=== PATIENT | male | born 1950 | race Two or more races ===

== ENCOUNTER → 2018-08-18 | Outpatient (CLI) | payer OTHER ==
[~2018-08-18] MED LIST: ASPI325T4 PO; IBUP600T27 PO
== END | disposition home or self-care (01) ==
LOC: CT 09:15
DX: J43.2 Centrilobular emphysema (principal); J98.11 Atelectasis; R16.1 Splenomegaly, not elsewhere classified; I70.0 Atherosclerosis of aorta
CPT/HCPCS: 71250

== ENCOUNTER 2019-12-28 18:27 | Emergency (ER) | payer OTHER | END 2019-12-28 19:06 | disposition left against medical advice (07) | LOC: EEVIPCON 18:27 → ER 18:27 → EDBD 18:27 → ER 19:06 | DX: R05 Cough (principal); Z53.21 Procedure and treatment not carried out due to patient leaving prior to being seen by health care provider ==

== ENCOUNTER 2020-08-14 19:59 | Inpatient (IN) | payer OTHER ==
[~2020-08-14] VITALS: Ht 170.2 cm; Wt 98.3 kg
[2020-08-15 22:00] VITALS: BP 119/73
[2020-08-15] MEDS: D5W/SOD CHL 0.45% 1,000 ML IV SCH (22:30)
[2020-08-15] MEDS ORDERED: TPN PER PHARMACY 0 ML IV SCH (22:30)
[2020-08-15] MEDS ORDERED: MORPHINE SULFATE 4 MG/ML SYR/VIAL IV PRN (22:30)
[2020-08-15] MEDS: ONDANSETRON HCL 4 MG/2 ML VIAL IV PRN (23:30)
[2020-08-15] MEDS: PIPERACILLIN-TAZOB 3.375GM 100 ML IV SCH (23:30)
[2020-08-15] MEDS: metroNIDAZOLE 500MG/100ML 100 ML IV SCH (23:30)
[2020-08-16 05:00] VITALS: BP 127/72
[2020-08-16] MEDS: D5W/SOD CHL 0.45% 1,000 ML IV SCH ×3 (05:10→18:21)
[2020-08-16] MEDS: metroNIDAZOLE 500MG/100ML 100 ML IV SCH ×3 (06:46→22:02)
[2020-08-16] MEDS: PIPERACILLIN-TAZOB 3.375GM 100 ML IV SCH ×3 (06:46→22:02)
[2020-08-16] MEDS: ONDANSETRON HCL 4 MG/2 ML VIAL IV PRN ×2 (06:46→19:05)
[2020-08-16 09:00] VITALS: BP 118/71
[2020-08-16] MEDS ORDERED: ENOXAPARIN SOD 40 MG/0.4 ML SYRINGE SC SCH (10:00)
[2020-08-16] MEDS ORDERED: TPN PER PHARMACY 0 ML IV SCH (10:30)
[2020-08-16 10:39] LABS: Albumin 2.6 g/dL (3.4-5.0); Calcium 8.3 mg/dL (8.5-10.1); Magnesium 2.3 mg/dL (1.6-2.6); Potassium 3.6 mmol/L (3.5-5.1)
[2020-08-16 10:46] LABS: Bilirubin, Total 1.1 mg/dL (0.2-1.0); Phosphorus 2.7 mg/dL (2.5-4.90); Pre Albumin 13.9 mg/dL (20.0-40.0); Total Protein 6.4 g/dL (6.4-8.2)
[2020-08-16 12:35] LABS: Basophils # (auto) 0.2 10 ^3/uL (0-0.2); Basophils % (auto) 0.8 % (0.0-2.0); Eosinophils # (auto) 0.2 10 ^3/uL (0-0.8); Eosinophils % (auto) 0.8 % (0.0-7.0); Hematocrit 51.5 % (41.0-53.0); Lymphocytes # (auto) 0.6 10 ^3/uL (0.4-5.4); Lymphocytes % (auto) 2.8 % (10.0-50.0); Mean Corpuscular Hemoglobin 30.6 pg (28.0-32.0); Mean Corpuscular Volume 92.7 fL (80.0-100.0); Monocytes # (auto) 1.5 10 ^3/uL (0-1.3); Monocytes % (auto) 7.1 % (0.0-12.0); Neutrophils % (auto) 88.5 % (37.0-80.0); Nucleated Red Blood Cells % 0.1 %; Platelet Count (auto) 413 10^3/uL (140-450); Red Blood Cells 5.55 10^6/uL (4.5-5.90); Red Cell Distribution Width 15.5 % (11.8-14.3); White Blood Cell 21.5 10^3/uL (4.4-10.8)
[2020-08-16 14:49] VITALS: BP 114/63
[2020-08-16 17:00] VITALS: BP 118/71
[2020-08-16] MEDS ORDERED: TPN PER PHARMACY IV NR ×6 (20:00)
[2020-08-16 22:00] VITALS: BP 116/70
[2020-08-17] MEDS ORDERED: DEXTROSE (50%) 50ML SYRG IV SCH
[2020-08-17] MEDS: InsuLIN REG 1unit/0.01ml Soln (100units/ml) SC SCH ×5 (00:38→23:30)
[2020-08-17] MEDS: ACCU-CHEK COMFORT CURVE STRIP VI SCH ×5 (00:38→23:30)
[2020-08-17] MEDS: D5W/SOD CHL 0.45% 1,000 ML IV SCH (01:17)
[2020-08-17 05:00] VITALS: BP 115/74
[2020-08-17 05:30] LABS: Potassium 3.5 mmol/L (3.5-5.1)
[2020-08-17 05:39] LABS: Albumin 2.6 g/dL (3.4-5.0); BUN/Creatinine Ratio 19.8; Calcium 8.1 mg/dL (8.5-10.1); Magnesium 2.5 mg/dL (1.6-2.6)
[2020-08-17 05:42] LABS: Bilirubin, Total 1.2 mg/dL (0.2-1.0); Phosphorus 2.9 mg/dL (2.5-4.90); Total Protein 6.5 g/dL (6.4-8.2)
[2020-08-17] MEDS: PIPERACILLIN-TAZOB 3.375GM 100 ML IV SCH ×3 (06:25→22:12)
[2020-08-17] MEDS: metroNIDAZOLE 500MG/100ML 100 ML IV SCH ×3 (06:25→22:12)
[2020-08-17 09:00] VITALS: BP 113/70
[2020-08-17] MEDS: PANTOPRAZOLE 40 MG/10 ML VIAL INJ IV SCH (09:49)
[2020-08-17] MEDS ORDERED: D5W/SOD CHL 0.45% 1,000 ML IV SCH ×2 (10:30→20:00)
[2020-08-17 13:00] VITALS: BP 116/76
[2020-08-17 13:53] LABS: INR 1.26 (0.9-1.15); Partial Thromboplastin Time 29.4 sec (23.0-31.2)
[2020-08-17] MEDS ORDERED: GASTROGRAFIN 120 ML SOL ONE (14:57)
[2020-08-17] MEDS ORDERED: TPN PER PHARMACY IV NR ×9 (20:00)
[2020-08-17 22:00] VITALS: BP 115/70
[2020-08-18 05:00] VITALS: BP 119/75
[2020-08-18] MEDS: metroNIDAZOLE 500MG/100ML 100 ML IV SCH ×3 (06:16→21:50)
[2020-08-18] MEDS: PIPERACILLIN-TAZOB 3.375GM 100 ML IV SCH ×3 (06:16→21:50)
[2020-08-18] MEDS: ACCU-CHEK COMFORT CURVE STRIP VI SCH ×4 (06:32→23:51)
[2020-08-18] MEDS: InsuLIN REG 1unit/0.01ml Soln (100units/ml) SC SCH ×4 (06:32→23:50)
[2020-08-18 07:17] LABS: Basophils # (auto) 0.2 10 ^3/uL (0-0.2); Basophils % (auto) 0.9 % (0.0-2.0); Eosinophils # (auto) 0.3 10 ^3/uL (0-0.8); Red Blood Cells 5.84 10^6/uL (4.5-5.90); Red Cell Distribution Width 15.4 % (11.8-14.3)
[2020-08-18 07:19] LABS: Eosinophils % (auto) 1.6 % (0.0-7.0); Hematocrit 53.9 % (41.0-53.0); Lymphocytes # (auto) 0.9 10 ^3/uL (0.4-5.4); Lymphocytes % (auto) 5.1 % (10.0-50.0); Mean Corpuscular Hemoglobin 30.8 pg (28.0-32.0); Mean Corpuscular Hgb Conc. 33.3 g/dL (32.0-36.0); Mean Corpuscular Volume 92.3 fL (80.0-100.0); Monocytes # (auto) 1.4 10 ^3/uL (0-1.3); Monocytes % (auto) 8.1 % (0.0-12.0); Neutrophils # (auto) 14.2 10 ^3/uL (1.6-8.6); Neutrophils % (auto) 84.3 % (37.0-80.0); Nucleated Red Blood Cells % 0.3 %; Platelet Count (auto) 452 10^3/uL (140-450); White Blood Cell 16.8 10^3/uL (4.4-10.8)
[2020-08-18 07:34] LABS: Albumin 2.7 g/dL (3.4-5.0); Calcium 8.4 mg/dL (8.5-10.1); Magnesium 2.8 mg/dL (1.6-2.6); Potassium 3.6 mmol/L (3.5-5.1)
[2020-08-18 07:38] LABS: BUN/Creatinine Ratio 20.2; Bilirubin, Total 1.1 mg/dL (0.2-1.0); Phosphorus 3.4 mg/dL (2.5-4.90); Total Protein 7.2 g/dL (6.4-8.2)
[2020-08-18 07:50] VITALS: BP 120/74
[2020-08-18] MEDS: PANTOPRAZOLE 40 MG/10 ML VIAL INJ IV SCH (09:49)
[2020-08-18 13:00] VITALS: BP 111/70
[2020-08-18 16:57] VITALS: BP 117/83
[2020-08-18 20:00] VITALS: BP 116/68
[2020-08-18] MEDS ORDERED: TPN PER PHARMACY IV NR ×8 (20:00)
[2020-08-18 22:00] VITALS: BP 116/68
[2020-08-19 05:00] VITALS: BP 98/64
[2020-08-19] MEDS: PIPERACILLIN-TAZOB 3.375GM 100 ML IV SCH ×3 (05:45→22:00)
[2020-08-19] MEDS: metroNIDAZOLE 500MG/100ML 100 ML IV SCH ×3 (05:45→22:00)
[2020-08-19] MEDS: InsuLIN REG 1unit/0.01ml Soln (100units/ml) SC SCH ×3 (05:52→18:05)
[2020-08-19] MEDS: ACCU-CHEK COMFORT CURVE STRIP VI SCH ×3 (05:52→17:20)
[2020-08-19 07:41] LABS: Albumin 2.5 g/dL (3.4-5.0); Magnesium 2.6 mg/dL (1.6-2.6); Potassium 3.4 mmol/L (3.5-5.1)
[2020-08-19 07:46] LABS: BUN/Creatinine Ratio 21.3; Bilirubin, Total 1.2 mg/dL (0.2-1.0); Phosphorus 3.1 mg/dL (2.5-4.90); Total Protein 6.3 g/dL (6.4-8.2)
[2020-08-19 08:20] VITALS: BP 127/80
[2020-08-19 09:15] VITALS: BP 127/80
[2020-08-19] MEDS: PANTOPRAZOLE 40 MG/10 ML VIAL INJ IV SCH (09:30)
[2020-08-19 12:58] VITALS: BP 127/70
[2020-08-19 16:40] VITALS: BP 131/73
[2020-08-19] MEDS ORDERED: TPN PER PHARMACY IV NR ×9 (20:00)
[2020-08-19 22:00] VITALS: BP 121/64
[2020-08-20] VITALS (7 sets, daily range): BP systolic 106–124; BP diastolic 67–71
[2020-08-20] MEDS: metroNIDAZOLE 500MG/100ML 100 ML IV SCH ×3 (06:00→21:36)
[2020-08-20] MEDS: PIPERACILLIN-TAZOB 3.375GM 100 ML IV SCH ×3 (06:00→21:36)
[2020-08-20] MEDS: PANTOPRAZOLE 40 MG/10 ML VIAL INJ IV SCH (10:08)
[2020-08-20] MEDS: ENOXAPARIN SOD 40 MG/0.4 ML SYRINGE SC SCH (10:08)
[2020-08-20] MEDS ORDERED: HYDROcodone-ACET 10/325MG TAB PO PRN (17:30)
[2020-08-21 05:00] VITALS: BP 137/81
[2020-08-21] MEDS: metroNIDAZOLE 500MG/100ML 100 ML IV SCH ×3 (05:19→22:14)
[2020-08-21] MEDS: PIPERACILLIN-TAZOB 3.375GM 100 ML IV SCH ×3 (05:20→22:14)
[2020-08-21 07:59] VITALS: BP 117/73
[2020-08-21] MEDS: PANTOPRAZOLE 40 MG/10 ML VIAL INJ IV SCH (09:39)
[2020-08-21] MEDS: ENOXAPARIN SOD 40 MG/0.4 ML SYRINGE SC SCH (09:40)
[2020-08-21 12:30] VITALS: BP 121/70
[2020-08-21 16:45] VITALS: BP 128/78
[2020-08-21 22:00] VITALS: BP 126/75
[2020-08-22 05:00] VITALS: BP 130/72
[2020-08-22] MEDS: metroNIDAZOLE 500MG/100ML 100 ML IV SCH ×3 (05:24→22:24)
[2020-08-22] MEDS: PIPERACILLIN-TAZOB 3.375GM 100 ML IV SCH ×3 (05:25→22:25)
[2020-08-22 08:30] VITALS: BP 116/70
[2020-08-22] MEDS: PANTOPRAZOLE 40 MG/10 ML VIAL INJ IV SCH (09:14)
[2020-08-22] MEDS: ENOXAPARIN SOD 40 MG/0.4 ML SYRINGE SC SCH (09:14)
[2020-08-22 12:30] VITALS: BP 113/70
[2020-08-22 16:54] VITALS: BP 137/72
[2020-08-22 22:00] VITALS: BP 113/67
[2020-08-23 05:00] VITALS: BP 121/72
[2020-08-23] MEDS: PIPERACILLIN-TAZOB 3.375GM 100 ML IV SCH ×3 (06:16→21:52)
[2020-08-23] MEDS: metroNIDAZOLE 500MG/100ML 100 ML IV SCH ×3 (06:17→21:54)
[2020-08-23 09:00] VITALS: BP 118/68
[2020-08-23] MEDS: ENOXAPARIN SOD 40 MG/0.4 ML SYRINGE SC SCH (09:23)
[2020-08-23] MEDS: PANTOPRAZOLE 40 MG/10 ML VIAL INJ IV SCH (09:23)
[2020-08-23 13:00] VITALS: BP 127/76
[2020-08-23 17:00] VITALS: BP 128/75
[2020-08-23 22:00] VITALS: BP 114/77
[2020-08-24 05:00] VITALS: BP 132/73
[2020-08-24] MEDS: PIPERACILLIN-TAZOB 3.375GM 100 ML IV SCH ×3 (06:10→22:25)
[2020-08-24] MEDS: metroNIDAZOLE 500MG/100ML 100 ML IV SCH ×3 (06:10→22:25)
[2020-08-24 08:00] VITALS: BP 126/74
[2020-08-24 08:22] VITALS: BP 126/74
[2020-08-24] MEDS: ENOXAPARIN SOD 40 MG/0.4 ML SYRINGE SC SCH (09:05)
[2020-08-24] MEDS: PANTOPRAZOLE 40 MG/10 ML VIAL INJ IV SCH (09:05)
[2020-08-24 13:00] VITALS: BP 122/68
[2020-08-24 16:08] VITALS: BP 115/64
[2020-08-24 22:47] VITALS: BP 128/78
[2020-08-25 05:35] VITALS: BP 131/76
[2020-08-25] MEDS: PIPERACILLIN-TAZOB 3.375GM 100 ML IV SCH ×3 (06:00→22:52)
[2020-08-25] MEDS: metroNIDAZOLE 500MG/100ML 100 ML IV SCH ×3 (06:00→22:52)
[2020-08-25 09:00] VITALS: BP 129/71
[2020-08-25] MEDS: PANTOPRAZOLE 40 MG/10 ML VIAL INJ IV SCH (10:01)
[2020-08-25] MEDS: ENOXAPARIN SOD 40 MG/0.4 ML SYRINGE SC SCH (10:02)
[2020-08-25 12:49] VITALS: BP 131/71
[2020-08-25 16:49] VITALS: BP 113/71
[2020-08-25 20:00] VITALS: BP 119/67
[2020-08-25 22:00] VITALS: BP 119/67
[2020-08-26 05:00] VITALS: BP 113/68
[2020-08-26] MEDS: PIPERACILLIN-TAZOB 3.375GM 100 ML IV SCH ×3 (05:23→21:21)
[2020-08-26] MEDS: metroNIDAZOLE 500MG/100ML 100 ML IV SCH ×3 (05:23→21:20)
[2020-08-26 08:49] VITALS: BP 112/59
[2020-08-26] MEDS: PANTOPRAZOLE 40 MG/10 ML VIAL INJ IV SCH (11:35)
[2020-08-26] MEDS: ENOXAPARIN SOD 40 MG/0.4 ML SYRINGE SC SCH (11:35)
[2020-08-26 12:38] VITALS: BP 101/68
[2020-08-26 16:42] VITALS: BP 115/69
[2020-08-26 20:00] VITALS: BP 114/71
[2020-08-26 22:00] VITALS: BP 114/71
[2020-08-27 05:00] VITALS: BP 134/75
[2020-08-27] MEDS: metroNIDAZOLE 500MG/100ML 100 ML IV SCH ×3 (05:29→21:23)
[2020-08-27] MEDS: PIPERACILLIN-TAZOB 3.375GM 100 ML IV SCH ×3 (05:30→21:23)
[2020-08-27] MEDS: ENOXAPARIN SOD 40 MG/0.4 ML SYRINGE SC SCH (09:58)
[2020-08-27] MEDS: PANTOPRAZOLE 40 MG/10 ML VIAL INJ IV SCH (09:58)
[2020-08-27 13:00] VITALS: BP 109/69
[2020-08-27 17:00] VITALS: BP 129/71
[2020-08-27 20:18] LABS: Basophils # (auto) 0.2 10 ^3/uL (0-0.2); Basophils % (auto) 1.3 % (0.0-2.0); Eosinophils # (auto) 0.3 10 ^3/uL (0-0.8); Eosinophils % (auto) 1.8 % (0.0-7.0); Hematocrit 50.8 % (41.0-53.0); Hemoglobin 16.7 g/dL (13.5-17.5); Lymphocytes # (auto) 1.1 10 ^3/uL (0.4-5.4); Lymphocytes % (auto) 7.7 % (10.0-50.0); Mean Corpuscular Hemoglobin 30.7 pg (28.0-32.0); Mean Corpuscular Hgb Conc. 32.9 g/dL (32.0-36.0); Mean Corpuscular Volume 93.3 fL (80.0-100.0); Monocytes % (auto) 6.8 % (0.0-12.0); Neutrophils # (auto) 11.6 10 ^3/uL (1.6-8.6); Neutrophils % (auto) 82.4 % (37.0-80.0); Nucleated Red Blood Cells % 0.2 %; Platelet Count (auto) 503 10^3/uL (140-450); Red Blood Cells 5.45 10^6/uL (4.5-5.90); Red Cell Distribution Width 16.4 % (11.8-14.3); White Blood Cell 14.1 10^3/uL (4.4-10.8)
[2020-08-27 20:35] LABS: Calcium 7.9 mg/dL (8.5-10.1); Potassium 4.7 mmol/L (3.5-5.1)
[2020-08-27 20:36] LABS: INR 1.12 (0.9-1.15); Partial Thromboplastin Time 30.2 sec (23.0-31.2)
[2020-08-27 20:38] LABS: BUN/Creatinine Ratio 12.4
[2020-08-27 20:56] LABS: Urine Bacteria NONE SEEN /hpf (None Seen); Urine Blood Negative /uL (Negative); Urine Specific Gravity 1.006 (1.001-1.035); Urine WBC 1 /hpf (0 - 3)
[2020-08-27 22:00] VITALS: BP 117/70
[2020-08-28] MEDS: metroNIDAZOLE 500MG/100ML 100 ML IV SCH ×3 (05:24→21:08)
[2020-08-28] MEDS: PIPERACILLIN-TAZOB 3.375GM 100 ML IV SCH ×3 (05:25→21:50)
[2020-08-28 09:00] VITALS: BP 142/82
[2020-08-28] MEDS: ENOXAPARIN SOD 40 MG/0.4 ML SYRINGE SC SCH (10:00)
[2020-08-28] MEDS: PANTOPRAZOLE 40 MG/10 ML VIAL INJ IV SCH (10:11)
[2020-08-28 13:00] VITALS: BP 107/68
[2020-08-28 16:45] VITALS: BP 127/73
[2020-08-28 21:35] VITALS: BP 101/68
[2020-08-29 05:52] VITALS: BP 126/70
[2020-08-29] MEDS: metroNIDAZOLE 500MG/100ML 100 ML IV SCH ×3 (06:28→21:45)
[2020-08-29] MEDS: PIPERACILLIN-TAZOB 3.375GM 100 ML IV SCH ×3 (06:29→21:45)
[2020-08-29 09:11] VITALS: BP 112/69
[2020-08-29] MEDS: ENOXAPARIN SOD 40 MG/0.4 ML SYRINGE SC SCH (09:21)
[2020-08-29] MEDS: PANTOPRAZOLE 40 MG/10 ML VIAL INJ IV SCH (09:21)
[2020-08-29] MEDS ORDERED: ceFAZolin 1GM/50ML 50 ML IV ONE (11:46)
[2020-08-29] MEDS ORDERED: fentaNYL CITRATE 100 MCG/2 ML VL ONE ×2 (13:45→15:23)
[2020-08-29] MEDS ORDERED: MIDAZOLAM HCL 1MG/1ML-2 ML VIAL ONE (13:45)
[2020-08-29] MEDS ORDERED: PHENYLEPHRINE HCL 10 MG/ML VL IV ONE (13:54)
[2020-08-29] MEDS ORDERED: ONDANSETRON HCL 4 MG/2 ML VIAL IV ONE (13:54)
[2020-08-29] MEDS ORDERED: PROPOFOL 10 MG/ML 20 ML IV ONE ×2 (15:23→15:24)
[2020-08-29] MEDS ORDERED: ONDANSETRON HCL 4 MG/2 ML VIAL IV PRN (16:00)
[2020-08-29] MEDS ORDERED: HYDROmorphone HCL 2 MG/ML VL IV PRN (16:00)
[2020-08-29 17:15] VITALS: BP 121/76
[2020-08-29 21:44] VITALS: BP 121/83
[2020-08-30 05:30] VITALS: BP 123/73
[2020-08-30] MEDS: PIPERACILLIN-TAZOB 3.375GM 100 ML IV SCH ×3 (06:07→21:17)
[2020-08-30] MEDS: metroNIDAZOLE 500MG/100ML 100 ML IV SCH ×3 (06:07→21:17)
[2020-08-30 08:33] VITALS: BP 112/69
[2020-08-30] MEDS: ENOXAPARIN SOD 40 MG/0.4 ML SYRINGE SC SCH (09:08)
[2020-08-30] MEDS: PANTOPRAZOLE 40 MG/10 ML VIAL INJ IV SCH (09:08)
[2020-08-30 12:43] VITALS: BP 113/69
[2020-08-30 17:00] VITALS: BP 111/65
[2020-08-30 22:00] VITALS: BP 119/65
[2020-08-31] VITALS (7 sets, daily range): BP systolic 116–142; BP diastolic 64–85
[2020-08-31] MEDS: metroNIDAZOLE 500MG/100ML 100 ML IV SCH ×3 (05:49→21:53)
[2020-08-31] MEDS: PIPERACILLIN-TAZOB 3.375GM 100 ML IV SCH ×3 (05:50→21:54)
[2020-08-31] MEDS: PANTOPRAZOLE 40 MG/10 ML VIAL INJ IV SCH (09:01)
[2020-08-31] MEDS: ENOXAPARIN SOD 40 MG/0.4 ML SYRINGE SC SCH (09:02)
[2020-08-31] MEDS: ALBUTEROL SULF 2.5 MG/0.5ML(0.5%) NEB SOLN NEB SCH (19:12)
[2020-08-31] MEDS: IPRATROPIUM BROM 0.5 MG/2.5ML INH SOL NEB SCH (19:12)
[2020-08-31] MEDS: guaiFENesin-DM 100/10mg/5ml SYR PO SCH (21:54)
[2020-09-01] MEDS: ALBUTEROL SULF 2.5 MG/0.5ML(0.5%) NEB SOLN NEB SCH ×4 (00:40→18:32)
[2020-09-01] MEDS: IPRATROPIUM BROM 0.5 MG/2.5ML INH SOL NEB SCH ×4 (00:40→18:31)
[2020-09-01 05:00] VITALS: BP 135/87
[2020-09-01] MEDS: metroNIDAZOLE 500MG/100ML 100 ML IV SCH ×3 (05:41→21:36)
[2020-09-01] MEDS: guaiFENesin-DM 100/10mg/5ml SYR PO SCH ×3 (05:42→21:35)
[2020-09-01] MEDS: PIPERACILLIN-TAZOB 3.375GM 100 ML IV SCH ×3 (05:42→21:35)
[2020-09-01] MEDS: PANTOPRAZOLE 40 MG/10 ML VIAL INJ IV SCH (08:54)
[2020-09-01] MEDS: ENOXAPARIN SOD 40 MG/0.4 ML SYRINGE SC SCH (08:54)
[2020-09-01 09:33] VITALS: BP 125/76
[2020-09-01 13:00] VITALS: BP 115/63
[2020-09-01 16:49] VITALS: BP 124/73
[2020-09-01 20:00] VITALS: BP 130/81
[2020-09-01 22:00] VITALS: BP 130/81
[2020-09-02] MEDS: IPRATROPIUM BROM 0.5 MG/2.5ML INH SOL NEB SCH ×4 (00:59→20:00)
[2020-09-02] MEDS: ALBUTEROL SULF 2.5 MG/0.5ML(0.5%) NEB SOLN NEB SCH ×4 (00:59→20:00)
[2020-09-02 05:00] VITALS: BP 111/81
[2020-09-02] MEDS: guaiFENesin-DM 100/10mg/5ml SYR PO SCH ×3 (05:58→21:54)
[2020-09-02] MEDS: PIPERACILLIN-TAZOB 3.375GM 100 ML IV SCH ×3 (05:58→21:54)
[2020-09-02] MEDS: metroNIDAZOLE 500MG/100ML 100 ML IV SCH ×3 (05:59→21:54)
[2020-09-02 08:40] VITALS: BP 122/79
[2020-09-02] MEDS: PANTOPRAZOLE 40 MG/10 ML VIAL INJ IV SCH (09:32)
[2020-09-02] MEDS: ENOXAPARIN SOD 40 MG/0.4 ML SYRINGE SC SCH (09:44)
[2020-09-02 12:49] VITALS: BP 128/80
[2020-09-02 16:50] VITALS: BP 130/86
[2020-09-02 22:00] VITALS: BP 113/69
[2020-09-03] MEDS: IPRATROPIUM BROM 0.5 MG/2.5ML INH SOL NEB SCH ×4 (00:30→19:41)
[2020-09-03] MEDS: ALBUTEROL SULF 2.5 MG/0.5ML(0.5%) NEB SOLN NEB SCH ×4 (00:30→19:41)
[2020-09-03 05:00] VITALS: BP 124/86
[2020-09-03] MEDS: PIPERACILLIN-TAZOB 3.375GM 100 ML IV SCH ×3 (05:31→21:59)
[2020-09-03] MEDS: metroNIDAZOLE 500MG/100ML 100 ML IV SCH ×3 (05:31→21:59)
[2020-09-03] MEDS: guaiFENesin-DM 100/10mg/5ml SYR PO SCH ×3 (05:32→21:28)
[2020-09-03 08:29] VITALS: BP 127/73
[2020-09-03] MEDS: ENOXAPARIN SOD 40 MG/0.4 ML SYRINGE SC SCH (09:36)
[2020-09-03] MEDS: PANTOPRAZOLE 40 MG/10 ML VIAL INJ IV SCH (09:36)
[2020-09-03 13:00] VITALS: BP 121/68
[2020-09-03 16:41] VITALS: BP 111/72
[2020-09-03 22:00] VITALS: BP 116/78
[2020-09-04] MEDS: ALBUTEROL SULF 2.5 MG/0.5ML(0.5%) NEB SOLN NEB SCH ×5 (00:20→23:55)
[2020-09-04] MEDS: IPRATROPIUM BROM 0.5 MG/2.5ML INH SOL NEB SCH ×5 (00:20→23:55)
[2020-09-04 01:10] VITALS: BP 116/78
[2020-09-04 05:09] VITALS: BP 122/78
[2020-09-04] MEDS: metroNIDAZOLE 500MG/100ML 100 ML IV SCH ×3 (05:30→21:32)
[2020-09-04] MEDS: PIPERACILLIN-TAZOB 3.375GM 100 ML IV SCH ×3 (05:30→21:32)
[2020-09-04] MEDS: guaiFENesin-DM 100/10mg/5ml SYR PO SCH ×3 (05:30→21:32)
[2020-09-04 09:00] VITALS: BP 111/78
[2020-09-04] MEDS: PANTOPRAZOLE 40 MG/10 ML VIAL INJ IV SCH (12:10)
[2020-09-04] MEDS: ENOXAPARIN SOD 40 MG/0.4 ML SYRINGE SC SCH (12:10)
[2020-09-04 13:00] VITALS: BP 130/86
[2020-09-04 17:00] VITALS: BP 118/82
[2020-09-04 22:00] VITALS: BP 118/78
[2020-09-05 05:00] VITALS: BP 125/85
[2020-09-05] MEDS: PIPERACILLIN-TAZOB 3.375GM 100 ML IV SCH ×3 (05:35→21:13)
[2020-09-05] MEDS: guaiFENesin-DM 100/10mg/5ml SYR PO SCH ×3 (05:35→21:14)
[2020-09-05] MEDS: metroNIDAZOLE 500MG/100ML 100 ML IV SCH ×3 (05:35→21:13)
[2020-09-05] MEDS: IPRATROPIUM BROM 0.5 MG/2.5ML INH SOL NEB SCH ×3 (07:25→19:42)
[2020-09-05] MEDS: ALBUTEROL SULF 2.5 MG/0.5ML(0.5%) NEB SOLN NEB SCH ×3 (07:25→19:42)
[2020-09-05 09:00] VITALS: BP 119/78
[2020-09-05] MEDS: ENOXAPARIN SOD 40 MG/0.4 ML SYRINGE SC SCH (09:24)
[2020-09-05] MEDS: PANTOPRAZOLE 40 MG/10 ML VIAL INJ IV SCH (09:24)
[2020-09-05 13:00] VITALS: BP 125/85
[2020-09-05 16:52] VITALS: BP 115/71
[2020-09-05 22:00] VITALS: BP 122/76
[2020-09-06] MEDS: ALBUTEROL SULF 2.5 MG/0.5ML(0.5%) NEB SOLN NEB SCH ×4 (00:27→19:21)
[2020-09-06] MEDS: IPRATROPIUM BROM 0.5 MG/2.5ML INH SOL NEB SCH ×4 (00:27→19:21)
[2020-09-06 05:00] VITALS: BP 134/79
[2020-09-06] MEDS: metroNIDAZOLE 500MG/100ML 100 ML IV SCH ×3 (05:20→22:11)
[2020-09-06] MEDS: PIPERACILLIN-TAZOB 3.375GM 100 ML IV SCH ×3 (05:20→22:11)
[2020-09-06] MEDS: guaiFENesin-DM 100/10mg/5ml SYR PO SCH ×3 (05:20→22:11)
[2020-09-06 08:45] VITALS: BP 121/83
[2020-09-06] MEDS: PANTOPRAZOLE 40 MG/10 ML VIAL INJ IV SCH (10:25)
[2020-09-06] MEDS: ENOXAPARIN SOD 40 MG/0.4 ML SYRINGE SC SCH (10:25)
[2020-09-06 13:02] VITALS: BP 123/76
[2020-09-06 17:17] VITALS: BP 118/73
[2020-09-06 20:00] VITALS: BP 120/82
[2020-09-06 22:00] VITALS: BP 120/82
[2020-09-07] MEDS: IPRATROPIUM BROM 0.5 MG/2.5ML INH SOL NEB SCH ×4 (01:04→18:19)
[2020-09-07] MEDS: ALBUTEROL SULF 2.5 MG/0.5ML(0.5%) NEB SOLN NEB SCH ×4 (01:04→18:19)
[2020-09-07 05:00] VITALS: BP 120/77
[2020-09-07] MEDS: metroNIDAZOLE 500MG/100ML 100 ML IV SCH ×3 (06:04→21:58)
[2020-09-07] MEDS: guaiFENesin-DM 100/10mg/5ml SYR PO SCH ×3 (06:04→21:58)
[2020-09-07] MEDS: PIPERACILLIN-TAZOB 3.375GM 100 ML IV SCH ×3 (06:04→21:58)
[2020-09-07 09:00] VITALS: BP 125/78
[2020-09-07] MEDS: PANTOPRAZOLE 40 MG/10 ML VIAL INJ IV SCH (09:52)
[2020-09-07] MEDS: ENOXAPARIN SOD 40 MG/0.4 ML SYRINGE SC SCH (09:52)
[2020-09-07 10:12] VITALS: BP 128/76
[2020-09-07 12:44] VITALS: BP 108/69
[2020-09-07 17:01] VITALS: BP 129/89
[2020-09-07 22:00] VITALS: BP 134/86
[2020-09-08] MEDS: IPRATROPIUM BROM 0.5 MG/2.5ML INH SOL NEB SCH ×4 (00:07→18:39)
[2020-09-08] MEDS: ALBUTEROL SULF 2.5 MG/0.5ML(0.5%) NEB SOLN NEB SCH ×4 (00:07→18:39)
[2020-09-08 05:00] VITALS: BP 128/77
[2020-09-08] MEDS: PIPERACILLIN-TAZOB 3.375GM 100 ML IV SCH ×2 (05:21→14:04)
[2020-09-08] MEDS: guaiFENesin-DM 100/10mg/5ml SYR PO SCH ×3 (05:21→21:33)
[2020-09-08] MEDS: metroNIDAZOLE 500MG/100ML 100 ML IV SCH ×2 (05:22→14:04)
[2020-09-08 09:00] VITALS: BP 128/72
[2020-09-08] MEDS: PANTOPRAZOLE 40 MG/10 ML VIAL INJ IV SCH (10:00)
[2020-09-08] MEDS: ENOXAPARIN SOD 40 MG/0.4 ML SYRINGE SC SCH (10:00)
[2020-09-08 12:45] VITALS: BP 131/69
[2020-09-08 16:36] VITALS: BP 103/76
[2020-09-08] MEDS: LINEZOLID 600MG/300ML 300 ML IV SCH (21:33)
[2020-09-08 22:00] VITALS: BP 115/80
[2020-09-09] MEDS: IPRATROPIUM BROM 0.5 MG/2.5ML INH SOL NEB SCH ×4 (00:19→19:53)
[2020-09-09] MEDS: ALBUTEROL SULF 2.5 MG/0.5ML(0.5%) NEB SOLN NEB SCH ×4 (00:19→19:53)
[2020-09-09 05:00] VITALS: BP 114/75
[2020-09-09] MEDS: guaiFENesin-DM 100/10mg/5ml SYR PO SCH ×3 (06:05→21:44)
[2020-09-09 07:35] LABS: Basophils # (auto) 0.2 10 ^3/uL (0-0.2); Eosinophils # (auto) 0.4 10 ^3/uL (0-0.8); Hemoglobin 17.8 g/dL (13.5-17.5); Lymphocytes # (auto) 1.2 10 ^3/uL (0.4-5.4); Monocytes # (auto) 0.7 10 ^3/uL (0-1.3)
[2020-09-09 07:37] LABS: Basophils % (auto) 1.4 % (0.0-2.0); Eosinophils % (auto) 2.6 % (0.0-7.0); Hematocrit 53.6 % (41.0-53.0); Lymphocytes % (auto) 8.4 % (10.0-50.0); Mean Corpuscular Hemoglobin 30.6 pg (28.0-32.0); Mean Corpuscular Hgb Conc. 33.2 g/dL (32.0-36.0); Mean Corpuscular Volume 92.3 fL (80.0-100.0); Monocytes % (auto) 5.1 % (0.0-12.0); Neutrophils # (auto) 11.6 10 ^3/uL (1.6-8.6); Neutrophils % (auto) 82.5 % (37.0-80.0); Nucleated Red Blood Cells % 0.1 %; Platelet Count (auto) 367 10^3/uL (140-450); Red Cell Distribution Width 16.5 % (11.8-14.3); White Blood Cell 14.1 10^3/uL (4.4-10.8)
[2020-09-09 08:08] LABS: Albumin 3.4 g/dL (3.4-5.0); BUN/Creatinine Ratio 18.1; Bilirubin, Total 0.5 mg/dL (0.2-1.0); Total Protein 7.6 g/dL (6.4-8.2)
[2020-09-09 09:00] VITALS: BP 114/75
[2020-09-09] MEDS: PANTOPRAZOLE 40 MG/10 ML VIAL INJ IV SCH (09:38)
[2020-09-09] MEDS: ENOXAPARIN SOD 40 MG/0.4 ML SYRINGE SC SCH (09:39)
[2020-09-09] MEDS: LINEZOLID 600MG/300ML 300 ML IV SCH ×2 (09:39→21:44)
[2020-09-09 13:00] VITALS: BP 108/73
[2020-09-09 17:00] VITALS: BP 115/70
[2020-09-09 22:00] VITALS: BP 116/74
[2020-09-10] MEDS: IPRATROPIUM BROM 0.5 MG/2.5ML INH SOL NEB SCH ×4 (00:58→20:16)
[2020-09-10] MEDS: ALBUTEROL SULF 2.5 MG/0.5ML(0.5%) NEB SOLN NEB SCH ×4 (00:58→20:16)
[2020-09-10 05:00] VITALS: BP 118/67
[2020-09-10] MEDS: guaiFENesin-DM 100/10mg/5ml SYR PO SCH ×3 (06:02→21:33)
[2020-09-10 09:05] VITALS: BP 118/75
[2020-09-10 09:14] VITALS: BP 118/75
[2020-09-10] MEDS: PANTOPRAZOLE 40 MG/10 ML VIAL INJ IV SCH (10:11)
[2020-09-10] MEDS: LINEZOLID 600MG/300ML 300 ML IV SCH ×2 (10:12→21:34)
[2020-09-10] MEDS: ENOXAPARIN SOD 40 MG/0.4 ML SYRINGE SC SCH (10:12)
[2020-09-10 13:19] VITALS: BP 104/72
[2020-09-10 16:28] VITALS: BP 104/63
[2020-09-10 22:00] VITALS: BP 106/65
[2020-09-11] MEDS: IPRATROPIUM BROM 0.5 MG/2.5ML INH SOL NEB SCH ×4 (01:08→19:52)
[2020-09-11] MEDS: ALBUTEROL SULF 2.5 MG/0.5ML(0.5%) NEB SOLN NEB SCH ×4 (01:08→19:52)
[2020-09-11 05:00] VITALS: BP 123/80
[2020-09-11] MEDS: guaiFENesin-DM 100/10mg/5ml SYR PO SCH ×3 (05:48→22:18)
[2020-09-11 09:00] VITALS: BP 101/65
[2020-09-11] MEDS: PANTOPRAZOLE 40 MG/10 ML VIAL INJ IV SCH (10:25)
[2020-09-11] MEDS: LINEZOLID 600MG/300ML 300 ML IV SCH ×2 (10:25→22:18)
[2020-09-11] MEDS: ENOXAPARIN SOD 40 MG/0.4 ML SYRINGE SC SCH (10:25)
[2020-09-11 12:36] VITALS: BP 129/107
[2020-09-11 13:30] VITALS: BP 108/71
[2020-09-11 16:54] VITALS: BP 107/60
[2020-09-11 22:00] VITALS: BP 103/64
[2020-09-12] MEDS: IPRATROPIUM BROM 0.5 MG/2.5ML INH SOL NEB SCH ×4 (00:55→19:48)
[2020-09-12] MEDS: ALBUTEROL SULF 2.5 MG/0.5ML(0.5%) NEB SOLN NEB SCH ×4 (00:55→19:48)
[2020-09-12 05:00] VITALS: BP 109/74
[2020-09-12] MEDS: guaiFENesin-DM 100/10mg/5ml SYR PO SCH ×3 (05:41→21:03)
[2020-09-12 09:13] VITALS: BP 105/71
[2020-09-12] MEDS: PANTOPRAZOLE 40 MG/10 ML VIAL INJ IV SCH (10:13)
[2020-09-12] MEDS: ENOXAPARIN SOD 40 MG/0.4 ML SYRINGE SC SCH (10:13)
[2020-09-12] MEDS: LINEZOLID 600MG/300ML 300 ML IV SCH ×2 (10:14→21:04)
[2020-09-12 13:00] VITALS: BP 118/78
[2020-09-12 17:02] VITALS: BP 115/69
[2020-09-12 22:00] VITALS: BP 132/84
[2020-09-13] MEDS: IPRATROPIUM BROM 0.5 MG/2.5ML INH SOL NEB SCH ×5 (00:46→23:41)
[2020-09-13] MEDS: ALBUTEROL SULF 2.5 MG/0.5ML(0.5%) NEB SOLN NEB SCH ×5 (00:46→23:41)
[2020-09-13 05:04] VITALS: BP 121/78
[2020-09-13] MEDS: guaiFENesin-DM 100/10mg/5ml SYR PO SCH ×3 (06:10→21:26)
[2020-09-13 09:00] VITALS: BP 111/76
[2020-09-13] MEDS: LINEZOLID 600MG/300ML 300 ML IV SCH ×2 (10:31→21:26)
[2020-09-13] MEDS: PANTOPRAZOLE 40 MG/10 ML VIAL INJ IV SCH (10:32)
[2020-09-13] MEDS: ENOXAPARIN SOD 40 MG/0.4 ML SYRINGE SC SCH (10:32)
[2020-09-13 13:00] VITALS: BP 118/80
[2020-09-13 13:01] VITALS: BP 111/76
[2020-09-13 16:40] VITALS: BP 126/72
[2020-09-13 22:00] VITALS: BP 117/69
[2020-09-14 05:00] VITALS: BP 118/79
[2020-09-14] MEDS: guaiFENesin-DM 100/10mg/5ml SYR PO SCH ×3 (05:07→21:04)
[2020-09-14] MEDS: ALBUTEROL SULF 2.5 MG/0.5ML(0.5%) NEB SOLN NEB SCH ×3 (06:50→18:25)
[2020-09-14] MEDS: IPRATROPIUM BROM 0.5 MG/2.5ML INH SOL NEB SCH ×3 (06:50→18:25)
[2020-09-14 09:00] VITALS: BP 93/69
[2020-09-14] MEDS: PANTOPRAZOLE 40 MG/10 ML VIAL INJ IV SCH (09:10)
[2020-09-14] MEDS: LINEZOLID 600MG/300ML 300 ML IV SCH ×2 (09:11→21:04)
[2020-09-14] MEDS: ENOXAPARIN SOD 40 MG/0.4 ML SYRINGE SC SCH (09:12)
[2020-09-14 13:25] VITALS: BP 101/69
[2020-09-14 17:00] VITALS: BP 108/71
[2020-09-14 22:00] VITALS: BP 107/67
[2020-09-15] MEDS: IPRATROPIUM BROM 0.5 MG/2.5ML INH SOL NEB SCH ×4 (00:30→19:44)
[2020-09-15] MEDS: ALBUTEROL SULF 2.5 MG/0.5ML(0.5%) NEB SOLN NEB SCH ×4 (00:30→19:43)
[2020-09-15 05:00] VITALS: BP 105/67
[2020-09-15] MEDS: guaiFENesin-DM 100/10mg/5ml SYR PO SCH ×3 (05:13→21:12)
[2020-09-15 09:00] VITALS: BP 108/71
[2020-09-15] MEDS: PANTOPRAZOLE 40 MG/10 ML VIAL INJ IV SCH (09:17)
[2020-09-15] MEDS: ENOXAPARIN SOD 40 MG/0.4 ML SYRINGE SC SCH (09:18)
[2020-09-15] MEDS: LINEZOLID 600MG/300ML 300 ML IV SCH ×2 (09:18→21:12)
[2020-09-15 13:00] VITALS: BP 116/75
[2020-09-15 17:00] VITALS: BP 107/69
[2020-09-15 22:35] VITALS: BP 117/77
[2020-09-16] MEDS: IPRATROPIUM BROM 0.5 MG/2.5ML INH SOL NEB SCH ×4 (00:22→19:57)
[2020-09-16] MEDS: ALBUTEROL SULF 2.5 MG/0.5ML(0.5%) NEB SOLN NEB SCH ×4 (00:22→19:57)
[2020-09-16 02:45] VITALS: BP 117/77
[2020-09-16 05:13] VITALS: BP 110/72
[2020-09-16] MEDS: guaiFENesin-DM 100/10mg/5ml SYR PO SCH ×3 (05:32→21:02)
[2020-09-16 08:37] VITALS: BP 115/76
[2020-09-16] MEDS: PANTOPRAZOLE 40 MG/10 ML VIAL INJ IV SCH (09:56)
[2020-09-16] MEDS: ENOXAPARIN SOD 40 MG/0.4 ML SYRINGE SC SCH (09:56)
[2020-09-16] MEDS: LINEZOLID 600MG/300ML 300 ML IV SCH ×2 (09:56→21:01)
[2020-09-16 13:00] VITALS: BP 113/66
[2020-09-16 17:16] VITALS: BP 121/75
[2020-09-16 22:12] VITALS: BP 113/74
[2020-09-17] MEDS: ALBUTEROL SULF 2.5 MG/0.5ML(0.5%) NEB SOLN NEB SCH ×4 (00:52→20:20)
[2020-09-17] MEDS: IPRATROPIUM BROM 0.5 MG/2.5ML INH SOL NEB SCH ×4 (00:52→20:20)
[2020-09-17] MEDS: guaiFENesin-DM 100/10mg/5ml SYR PO SCH ×3 (05:39→21:44)
[2020-09-17 05:52] VITALS: BP 121/75
[2020-09-17 08:46] VITALS: BP 115/77
[2020-09-17] MEDS: ENOXAPARIN SOD 40 MG/0.4 ML SYRINGE SC SCH (10:17)
[2020-09-17] MEDS: PANTOPRAZOLE 40 MG/10 ML VIAL INJ IV SCH (10:17)
[2020-09-17] MEDS: LINEZOLID 600MG/300ML 300 ML IV SCH ×2 (10:17→21:43)
[2020-09-17 13:00] VITALS: BP 113/70
[2020-09-17 16:49] VITALS: BP 138/84
[2020-09-17 22:00] VITALS: BP 120/72
[2020-09-18] MEDS: ALBUTEROL SULF 2.5 MG/0.5ML(0.5%) NEB SOLN NEB SCH ×4 (01:15→18:14)
[2020-09-18] MEDS: IPRATROPIUM BROM 0.5 MG/2.5ML INH SOL NEB SCH ×4 (01:15→18:14)
[2020-09-18 05:00] VITALS: BP 118/82
[2020-09-18] MEDS: guaiFENesin-DM 100/10mg/5ml SYR PO SCH ×3 (05:25→21:25)
[2020-09-18 09:00] VITALS: BP 157/84
[2020-09-18] MEDS: PANTOPRAZOLE 40 MG/10 ML VIAL INJ IV SCH (11:07)
[2020-09-18] MEDS: ENOXAPARIN SOD 40 MG/0.4 ML SYRINGE SC SCH (11:08)
[2020-09-18] MEDS: LINEZOLID 600MG/300ML 300 ML IV SCH ×2 (11:08→21:25)
[2020-09-18 12:27] VITALS: BP 112/69
[2020-09-18 16:28] VITALS: BP 122/72
[2020-09-18 18:45] VITALS: BP 122/72
[2020-09-18 22:00] VITALS: BP 115/72
[2020-09-19] MEDS: ALBUTEROL SULF 2.5 MG/0.5ML(0.5%) NEB SOLN NEB SCH ×3 (00:09→11:06)
[2020-09-19] MEDS: IPRATROPIUM BROM 0.5 MG/2.5ML INH SOL NEB SCH ×3 (00:09→11:06)
[2020-09-19 05:00] VITALS: BP 118/76
[2020-09-19] MEDS: guaiFENesin-DM 100/10mg/5ml SYR PO SCH ×2 (05:28→14:00)
[2020-09-19 08:59] VITALS: BP 121/78
[2020-09-19] MEDS: PANTOPRAZOLE 40 MG/10 ML VIAL INJ IV SCH (09:53)
[2020-09-19] MEDS: LINEZOLID 600MG/300ML 300 ML IV SCH (09:54)
[2020-09-19] MEDS: ENOXAPARIN SOD 40 MG/0.4 ML SYRINGE SC SCH (09:54)
[2020-09-19] MEDS ORDERED: CIPR500T4 PO (12:15)
[2020-09-19 12:32] VITALS: BP 99/59
[2020-09-19 13:37] VITALS: BP 135/75
== END 2020-09-19 16:14 | DRG 356 ==
LOC: TELE-WESTW 08-15 18:35 → EEVIPCON 08-15 18:35 → TELE-WESTW 08-15 19:03 → WEST WING 08-23 07:46
PROVIDERS: ADMIT Internal Medicine; ATTEND Internal Medicine
PROC: 0JB80ZZ Excision of Abdomen Subcutaneous Tissue and Fascia, Open Approach (ICD-10-PCS; 2020-08-29)
PROC: 0JD80ZZ Extraction of Abdomen Subcutaneous Tissue and Fascia, Open Approach (ICD-10-PCS; principal; 2020-08-29 13:54)
DX: K63.1 Perforation of intestine (nontraumatic) (principal); K66.1 Hemoperitoneum; J96.01 Acute respiratory failure with hypoxia; T81.31XA Disruption of external operation (surgical) wound, not elsewhere classified, initial encounter; K56.7 Ileus, unspecified; J98.11 Atelectasis; L03.311 Cellulitis of abdominal wall; Z16.21 Resistance to vancomycin; L02.211 Cutaneous abscess of abdominal wall; Z20.822 Contact with and (suspected) exposure to COVID-19; Y83.8 Other surgical procedures as the cause of abnormal reaction of the patient, or of later complication, without mention of misadventure at the time of the procedure; B95.2 Enterococcus as the cause of diseases classified elsewhere; Z53.9 Procedure and treatment not carried out, unspecified reason; Z79.82 Long term (current) use of aspirin; Z82.5 Family history of asthma and other chronic lower respiratory diseases; Z93.3 Colostomy status; Z87.01 Personal history of pneumonia (recurrent); Y92.89 Other specified places as the place of occurrence of the external cause
CPT/HCPCS: 36415; 71045; 74018; 74250; 80048; 80053; 81001; 82040; 82962; 83735; 84100; 84478; 85025; 85610; 85730; 86850; 86900; 86901; 87070; 87077; 87081; 87086; 87186; 87426; 94640; 97110; 97116; 97163; 97530; C9113; G0378; J0690; J1815; J2250; J2405; J2543; J2704; J3490; J7131

== ENCOUNTER → 2021-08-12 | Outpatient (CLI) | payer OTHER ==
[~2021-08-12] MED LIST changes: -ASPI325T4 PO; +CIPR500T4 PO
== END | disposition home or self-care (01) ==
LOC: CT 08:44
DX: K43.5 Parastomal hernia without obstruction or gangrene (principal); M62.08 Separation of muscle (nontraumatic), other site; K43.9 Ventral hernia without obstruction or gangrene; R16.2 Hepatomegaly with splenomegaly, not elsewhere classified; N20.0 Calculus of kidney; N40.0 Benign prostatic hyperplasia without lower urinary tract symptoms; I25.10 Atherosclerotic heart disease of native coronary artery without angina pectoris; I70.0 Atherosclerosis of aorta; K86.89 Other specified diseases of pancreas; N28.1 Cyst of kidney, acquired; K57.30 Diverticulosis of large intestine without perforation or abscess without bleeding; J44.9 Chronic obstructive pulmonary disease, unspecified; I51.7 Cardiomegaly; J98.11 Atelectasis
CPT/HCPCS: 74176

== ENCOUNTER 2021-09-10 20:11 | Inpatient (IN) | payer OTHER ==
[~2021-09-10] VITALS: Ht 170.2 cm; Wt 106.3 kg
[2021-09-10] MEDS ORDERED: IOHEXOL 300 MG/ML 100ML BOTTLE IJ ONE (20:56)
[2021-09-10] MEDS ORDERED: SODIUM CHLORIDE 0.9% 1,000 ML IV ONE (21:00)
[2021-09-10 21:09] LABS: Monocytes # (auto) 0.7 10 ^3/uL (0-1.3); Red Cell Distribution Width 16.2 % (11.8-14.3)
[2021-09-10 21:10] LABS: Basophils # (auto) 0.2 10 ^3/uL (0-0.2); Basophils % (auto) 1.3 % (0.0-2.0); Eosinophils # (auto) 0 10 ^3/uL (0-0.8); Eosinophils % (auto) 0.3 % (0.0-7.0); Lymphocytes # (auto) 0.4 10 ^3/uL (0.4-5.4); Lymphocytes % (auto) 2.9 % (10.0-50.0); Mean Corpuscular Hemoglobin 27.8 pg (28.0-32.0); Mean Corpuscular Hgb Conc. 32.7 g/dL (32.0-36.0); Monocytes % (auto) 5.1 % (0.0-12.0); Neutrophils # (auto) 12.7 10 ^3/uL (1.6-8.6); Neutrophils % (auto) 90.4 % (37.0-80.0); Nucleated Red Blood Cells % 0.3 %; Red Blood Cells 7.57 10^6/uL (4.5-5.90); White Blood Cell 14.1 10^3/uL (4.4-10.8)
[2021-09-10 21:22] LABS: Hematocrit 64.3 % (41.0-53.0)
[2021-09-10 21:28] LABS: Hemoglobin 21.1 g/dL (13.5-17.5)
[2021-09-10 21:30] LABS: Albumin 3.6 g/dL (3.4-5.0); Calcium 8.9 mg/dL (8.5-10.1); Magnesium 2.6 mg/dL (1.6-2.6); Potassium 4.2 mmol/L (3.5-5.1)
[2021-09-10 21:33] LABS: Total Protein 7.3 g/dL (6.4-8.2)
[2021-09-10 21:35] LABS: INR 1.49 (0.9-1.15); Partial Thromboplastin Time 33.8 sec (23.6-33.0)
[2021-09-10 21:41] LABS: BUN/Creatinine Ratio 17.7
[2021-09-10 23:24] LABS: Urine WBC None Seen /hpf (0 - 3)
[2021-09-10 23:39] LABS: Urine Bacteria NONE SEEN /hpf (None Seen); Urine Blood Negative /uL (Negative); Urine Specific Gravity 1.047 (1.001-1.035)
[2021-09-11] MEDS ORDERED: NITROGLYCERIN 0.4 MG SL TAB SL PRN
[2021-09-11] MEDS ORDERED: MORPHINE SULFATE INJECTION 2 MG/ML SYRG IV PRN
[2021-09-11] MEDS: ONDANSETRON HCL 4 MG/2 ML VIAL IV PRN ×2 (00:29→05:35)
[2021-09-11] MEDS ORDERED: cefTRIAXone 1GM/50ML D5W 50 ML IV SCH (00:30)
[2021-09-11] MEDS: MORPHINE SULFATE 4 MG/ML SYR/VIAL IV PRN ×4 (00:30→21:27)
[2021-09-11] MEDS: D5W/SOD CHL 0.45% 1,000 ML IV SCH ×5 (00:50→23:45)
[2021-09-11 02:42] VITALS: BP 137/89
[2021-09-11] MEDS ORDERED: ASPI325T4 PO (03:44)
[2021-09-11 05:39] VITALS: BP 152/91
[2021-09-11 09:17] VITALS: BP 137/90
[2021-09-11] MEDS: ENOXAPARIN SOD 40 MG/0.4 ML SYRINGE SC SCH (11:42)
[2021-09-11 13:00] VITALS: BP 142/93
[2021-09-11] MEDS ORDERED: levoFLOXacin 500MG 100 ML IV ONE (13:15)
[2021-09-11] MEDS: metroNIDAZOLE 500MG/100ML 100 ML IV SCH ×2 (14:46→21:26)
[2021-09-11 16:51] VITALS: BP 132/89
[2021-09-11 21:59] VITALS: BP 136/79
[2021-09-12 05:00] VITALS: BP 123/67
[2021-09-12] MEDS: metroNIDAZOLE 500MG/100ML 100 ML IV SCH ×3 (06:24→21:31)
[2021-09-12 06:46] LABS: Eosinophils # (auto) 0 10 ^3/uL (0-0.8); Hemoglobin 20.4 g/dL (13.5-17.5); Lymphocytes # (auto) 0.2 10 ^3/uL (0.4-5.4); Red Cell Distribution Width 16.5 % (11.8-14.3)
[2021-09-12 06:48] LABS: Basophils # (auto) 0 10 ^3/uL (0-0.2); Basophils % (auto) 0.1 % (0.0-2.0); Eosinophils % (auto) 0.1 % (0.0-7.0); Lymphocytes % (auto) 0.9 % (10.0-50.0); Mean Corpuscular Hemoglobin 27.7 pg (28.0-32.0); Mean Corpuscular Hgb Conc. 32.2 g/dL (32.0-36.0); Mean Corpuscular Volume 85.9 fL (80.0-100.0); Monocytes # (auto) 1.6 10 ^3/uL (0-1.3); Monocytes % (auto) 7.2 % (0.0-12.0); Neutrophils # (auto) 20.9 10 ^3/uL (1.6-8.6); Neutrophils % (auto) 91.7 % (37.0-80.0); Nucleated Red Blood Cells % 0.4 %; Red Blood Cells 7.36 10^6/uL (4.5-5.90); White Blood Cell 22.8 10^3/uL (4.4-10.8)
[2021-09-12 06:52] LABS: Hematocrit 63.2 % (41.0-53.0)
[2021-09-12 07:03] LABS: Albumin 2.8 g/dL (3.4-5.0); Calcium 8.2 mg/dL (8.5-10.1); Potassium 4.1 mmol/L (3.5-5.1)
[2021-09-12 07:08] LABS: BUN/Creatinine Ratio 15.3; Bilirubin, Total 6.2 mg/dL (0.2-1.0); Total Protein 6.7 g/dL (6.4-8.2)
[2021-09-12 09:00] VITALS: BP 119/72
[2021-09-12] MEDS: levoFLOXacin 500MG 100 ML IV SCH (09:52)
[2021-09-12] MEDS: ENOXAPARIN SOD 40 MG/0.4 ML SYRINGE SC SCH (09:52)
[2021-09-12] MEDS: MORPHINE SULFATE 4 MG/ML SYR/VIAL IV PRN ×2 (09:53→17:08)
[2021-09-12] MEDS: D5W/SOD CHL 0.45% 1,000 ML IV SCH ×2 (09:54→18:57)
[2021-09-12 13:00] VITALS: BP 134/78
[2021-09-12] MEDS ORDERED: GASTROGRAFIN 120 ML SOL ONE (13:09)
[2021-09-12 17:00] VITALS: BP 112/79
[2021-09-12 22:00] VITALS: BP 121/77
[2021-09-13 05:01] VITALS: BP 123/67
[2021-09-13] MEDS: metroNIDAZOLE 500MG/100ML 100 ML IV SCH ×3 (05:49→21:13)
[2021-09-13] MEDS: D5W/SOD CHL 0.45% 1,000 ML IV SCH (06:34)
[2021-09-13] MEDS: MORPHINE SULFATE 4 MG/ML SYR/VIAL IV PRN (06:39)
[2021-09-13 06:49] LABS: Hemoglobin 19.5 g/dL (13.5-17.5); Mean Corpuscular Hemoglobin 27.7 pg (28.0-32.0); Mean Corpuscular Hgb Conc. 32.5 g/dL (32.0-36.0); Mean Corpuscular Volume 85.3 fL (80.0-100.0); Red Blood Cells 7.03 10^6/uL (4.5-5.90); Red Cell Distribution Width 16.4 % (11.8-14.3); White Blood Cell 22.3 10^3/uL (4.4-10.8)
[2021-09-13 07:04] LABS: Potassium 3.9 mmol/L (3.5-5.1)
[2021-09-13 07:10] LABS: Albumin 2.5 g/dL (3.4-5.0); BUN/Creatinine Ratio 24.4; Bilirubin, Total 8.9 mg/dL (0.2-1.0); Calcium 8.9 mg/dL (8.5-10.1); Total Protein 6.6 g/dL (6.4-8.2)
[2021-09-13 07:38] LABS: Hematocrit 59.9 % (41.0-53.0)
[2021-09-13 07:39] LABS: Basophils % (manual) 0 (0.0-2.0); Blast Cells 0; Eosinophils % (manual) 0 (0-7); Metamyelocytes % 0; Myelocytes % 0; Promyelocytes % 0; Reactive Lymphocytes 0
[2021-09-13 08:23] LABS: Band Neutrophils % (manual) 26; Lymphocytes % (manual) 2 (10.0-50.0); Monocytes % (manual) 4 (0-12)
[2021-09-13] MEDS: levoFLOXacin 500MG 100 ML IV SCH (08:47)
[2021-09-13] MEDS: ENOXAPARIN SOD 40 MG/0.4 ML SYRINGE SC SCH (08:47)
[2021-09-13 08:58] VITALS: BP 123/83
[2021-09-13 13:00] VITALS: BP 114/80
[2021-09-13 16:56] VITALS: BP 138/81
[2021-09-13 22:00] VITALS: BP 130/78
[2021-09-14 05:00] VITALS: BP 140/81
[2021-09-14] MEDS: metroNIDAZOLE 500MG/100ML 100 ML IV SCH ×2 (05:30→21:12)
[2021-09-14] MEDS: MORPHINE SULFATE 4 MG/ML SYR/VIAL IV PRN (05:32)
[2021-09-14 07:45] LABS: Basophils # (auto) 0.1 10 ^3/uL (0-0.2); Eosinophils # (auto) 0.1 10 ^3/uL (0-0.8); Lymphocytes # (auto) 0.3 10 ^3/uL (0.4-5.4); Mean Corpuscular Hemoglobin 27.8 pg (28.0-32.0)
[2021-09-14 08:01] LABS: Albumin 2.5 g/dL (3.4-5.0); Calcium 8.7 mg/dL (8.5-10.1); Potassium 3.5 mmol/L (3.5-5.1)
[2021-09-14 08:04] LABS: BUN/Creatinine Ratio 21.3; Bilirubin, Total 3.8 mg/dL (0.2-1.0); Total Protein 6.7 g/dL (6.4-8.2)
[2021-09-14 08:16] LABS: Basophils % (auto) 0.7 % (0.0-2.0); Eosinophils % (auto) 0.5 % (0.0-7.0); Hemoglobin 19.2 g/dL (13.5-17.5); Lymphocytes % (auto) 1.4 % (10.0-50.0); Mean Corpuscular Hgb Conc. 32.5 g/dL (32.0-36.0); Mean Corpuscular Volume 85.5 fL (80.0-100.0); Monocytes # (auto) 1.1 10 ^3/uL (0-1.3); Monocytes % (auto) 5.9 % (0.0-12.0); Neutrophils # (auto) 16.8 10 ^3/uL (1.6-8.6); Neutrophils % (auto) 91.5 % (37.0-80.0); Nucleated Red Blood Cells % 0.2 %; Red Cell Distribution Width 16.2 % (11.8-14.3); White Blood Cell 18.3 10^3/uL (4.4-10.8)
[2021-09-14 09:00] VITALS: BP 143/96
[2021-09-14] MEDS: ENOXAPARIN SOD 40 MG/0.4 ML SYRINGE SC SCH (09:43)
[2021-09-14] MEDS: levoFLOXacin 500MG 100 ML IV SCH (09:43)
[2021-09-14] MEDS ORDERED: HYDROcodone-ACET 10/325MG TAB PO PRN (12:00)
[2021-09-14 17:00] VITALS: BP 143/94
[2021-09-14] MEDS: D5W/SOD CHL 0.45% 1,000 ML IV SCH (21:35)
[2021-09-14 22:00] VITALS: BP 136/87
[2021-09-15] MEDS: metroNIDAZOLE 500MG/100ML 100 ML IV SCH ×4 (00:36→22:11)
[2021-09-15 05:00] VITALS: BP 141/92
[2021-09-15 10:15] VITALS: BP 138/91
[2021-09-15] MEDS: ENOXAPARIN SOD 40 MG/0.4 ML SYRINGE SC SCH (10:30)
[2021-09-15] MEDS: levoFLOXacin 500MG 100 ML IV SCH (10:30)
[2021-09-15 12:53] VITALS: BP 131/87
[2021-09-15 17:00] VITALS: BP 144/89
[2021-09-15 22:00] VITALS: BP 149/87
[2021-09-16 05:15] VITALS: BP 129/74
[2021-09-16] MEDS: metroNIDAZOLE 500MG/100ML 100 ML IV SCH ×3 (05:37→20:58)
[2021-09-16 09:00] VITALS: BP 133/77
[2021-09-16] MEDS: ENOXAPARIN SOD 40 MG/0.4 ML SYRINGE SC SCH (09:31)
[2021-09-16] MEDS: levoFLOXacin 500MG 100 ML IV SCH (09:31)
[2021-09-16 13:00] VITALS: BP 116/77
[2021-09-16 17:00] VITALS: BP 144/86
[2021-09-16 22:00] VITALS: BP 121/76
[2021-09-17 05:00] VITALS: BP 121/81
[2021-09-17] MEDS: metroNIDAZOLE 500MG/100ML 100 ML IV SCH ×2 (05:42→14:30)
[2021-09-17 08:34] VITALS: BP 150/87
[2021-09-17] MEDS: ENOXAPARIN SOD 40 MG/0.4 ML SYRINGE SC SCH (10:00)
[2021-09-17] MEDS: levoFLOXacin 500MG 100 ML IV SCH (10:00)
[2021-09-17 12:33] VITALS: BP 135/81
[2021-09-17 16:53] VITALS: BP 139/86
== END 2021-09-17 18:30 | DRG 393 ==
LOC: EDBD 20:11 → ER 20:14 → EEVIPCON 20:14 → OVERFLOW 23:49 → WEST WING 09-11 01:15
PROVIDERS: ADMIT Internal Medicine; ATTEND Internal Medicine
DX: K94.03 Colostomy malfunction (principal); J18.9 Pneumonia, unspecified organism; K85.10 Biliary acute pancreatitis without necrosis or infection; K80.10 Calculus of gallbladder with chronic cholecystitis without obstruction; K57.30 Diverticulosis of large intestine without perforation or abscess without bleeding; K76.0 Fatty (change of) liver, not elsewhere classified; D64.9 Anemia, unspecified; D75.1 Secondary polycythemia; J43.9 Emphysema, unspecified; N20.0 Calculus of kidney; N28.1 Cyst of kidney, acquired; Z20.822 Contact with and (suspected) exposure to COVID-19; B19.20 Unspecified viral hepatitis C without hepatic coma; Y83.3 Surgical operation with formation of external stoma as the cause of abnormal reaction of the patient, or of later complication, without mention of misadventure at the time of the procedure; K43.9 Ventral hernia without obstruction or gangrene; Z80.51 Family history of malignant neoplasm of kidney; Z82.5 Family history of asthma and other chronic lower respiratory diseases
CPT/HCPCS: 36415; 36600; 71046; 74177; 74181; 76700; 80053; 81001; 82105; 82150; 82668; 82805; 83605; 83615; 83690; 83735; 84484; 85007; 85025; 85027; 85610; 85730; 87081; 93005; 96361; 96365; G0378; J0696; J1956; J2405; J3490

== ENCOUNTER 2022-07-17 16:55 | Inpatient (IN) | payer OTHER ==
[~2022-07-17] VITALS: Ht 170.2 cm; Wt 95.0 kg
[~2022-07-17 16:55] MED LIST changes: +ASPI325T4 PO; -CIPR500T4 PO
[2022-07-17 17:57] LABS: Basophils # (auto) 0.2 10 ^3/uL (0-0.2); Basophils % (auto) 1.4 % (0.0-2.0); Eosinophils # (auto) 0.2 10 ^3/uL (0-0.8); Eosinophils % (auto) 0.9 % (0.0-7.0); Hematocrit 56.5 % (41.0-53.0); Hemoglobin 17.1 g/dL (13.5-17.5); Lymphocytes # (auto) 0.7 10 ^3/uL (0.4-5.4); Mean Corpuscular Hemoglobin 21.4 pg (28.0-32.0); Mean Corpuscular Hgb Conc. 30.2 g/dL (32.0-36.0); Mean Corpuscular Volume 70.7 fL (80.0-100.0); Monocytes # (auto) 0.8 10 ^3/uL (0-1.3); Monocytes % (auto) 4.5 % (0.0-12.0); Neutrophils # (auto) 16.1 10 ^3/uL (1.6-8.6); Neutrophils % (auto) 89.2 % (37.0-80.0); Red Cell Distribution Width 20.5 % (11.8-14.3)
[2022-07-17 18:13] LABS: Albumin 3.1 g/dL (3.4-5.0); BUN/Creatinine Ratio 26.8; Potassium 4.7 mmol/L (3.5-5.1)
[2022-07-17 18:16] LABS: Bilirubin, Total 0.5 mg/dL (0.2-1.0); Total Protein 6.3 g/dL (6.4-8.2)
[2022-07-17 20:22] LABS: Anion Gap 6 (5-15); BUN/Creatinine Ratio 24.7; Blood Urea Nitrogen 21 mg/dL (7-18); Carbon Dioxide 25 mmol/L (21-32); Chloride 107 mmol/L (98-107); GFR African American 114 mL/min; GFR Non-African American 94 mL/min; Potassium 4.6 mmol/L (3.5-5.1); Sodium 138 mmol/L (136-145)
[2022-07-17 20:23] LABS: Alanine Aminotransferase 15 U/L (16-61); Albumin 3.6 g/dL (3.4-5.0); Alkaline Phosphatase 100 U/L (45-117); Aspartate Aminotransferase 18 U/L (15-37); Bilirubin, Total 0.5 mg/dL (0.2-1.0); Calcium 8.1 mg/dL (8.5-10.1); Glucose 137 mg/dL (74-106); Total Protein 6.6 g/dL (6.4-8.2)
[2022-07-17 20:24] LABS: Blood Alcohol < 3.0 mg/dL (0-5)
[2022-07-17 21:36] LABS: Urine Bacteria NONE SEEN /hpf (None Seen); Urine Blood Negative /uL (Negative); Urine Specific Gravity 1.011 (1.001-1.035); Urine WBC <1 /hpf (0 - 3)
[2022-07-17] MEDS ORDERED: IOHEXOL 350 MG/ML 100ML IJ ONE (21:55)
[2022-07-17 21:59] LABS: Alcohol, Urine < 3.0 mg/dL (0-10); Amphetamine Screen, Urine NEGATIVE (NEGATIVE); Barbiturate Scree,Urine NEGATIVE (NEGATIVE); Benzodiazephine Screen, Urine NEGATIVE (NEGATIVE); Cannabinoid Screen, Urine NEGATIVE (NEGATIVE); Cocaine Screen, Urine NEGATIVE (NEGATIVE); Opiate Scree,Urine NEGATIVE (NEGATIVE); Phencyclidine Screen, Urine NEGATIVE (NEGATIVE)
[2022-07-18] MEDS ORDERED: cefTRIAXone 1GM/50ML D5W 50 ML IV ONE (00:45)
[2022-07-18] MEDS ORDERED: DOCUSATE SOD 100 MG CAP PO PRN (00:45)
[2022-07-18] MEDS ORDERED: SODIUM CHLORIDE 0.9% 1,000 ML IV SCH (00:45)
[2022-07-18] MEDS ORDERED: ONDANSETRON HCL 4 MG/2 ML VIAL IV PRN (00:45)
[2022-07-18] MEDS ORDERED: ACETAMINOPHEN 325 MG TAB PO PRN (00:45)
[2022-07-18] MEDS: HYDROcodone-ACET 5/325MG TAB PO PRN ×2 (01:55→06:48)
[2022-07-18] MEDS ORDERED: MORPHINE SULFATE INJ 2 MG/ml SYRG IV PRN (02:15)
[2022-07-18] MEDS ORDERED: NITROGLYCERIN 0.4 MG SL TAB SL PRN (02:15)
[2022-07-18 06:17] LABS: Neutrophils # (auto) 15.3 10 ^3/uL (1.6-8.6)
[2022-07-18 06:22] LABS: Basophils # (auto) 0.2 10 ^3/uL (0-0.2); Basophils % (auto) 1.3 % (0.0-2.0); Eosinophils # (auto) 0.3 10 ^3/uL (0-0.8); Eosinophils % (auto) 1.4 % (0.0-7.0); Lymphocytes # (auto) 1.3 10 ^3/uL (0.4-5.4); Lymphocytes % (auto) 7.3 % (10.0-50.0); Mean Corpuscular Hemoglobin 21.6 pg (28.0-32.0); Mean Corpuscular Hgb Conc. 30.9 g/dL (32.0-36.0); Mean Corpuscular Volume 69.8 fL (80.0-100.0); Monocytes % (auto) 5.8 % (0.0-12.0); Neutrophils % (auto) 84.2 % (37.0-80.0); Nucleated Red Blood Cells % 0.7 %; Red Blood Cells 7.87 10^6/uL (4.5-5.90); White Blood Cell 18.2 10^3/uL (4.4-10.8)
[2022-07-18 06:38] LABS: Red Cell Distribution Width 20.2 % (11.8-14.3)
[2022-07-18 06:39] LABS: Albumin 3.3 g/dL (3.4-5.0); Calcium 8.2 mg/dL (8.5-10.1); Potassium 4.6 mmol/L (3.5-5.1)
[2022-07-18 06:43] LABS: BUN/Creatinine Ratio 20.5; Bilirubin, Total 0.6 mg/dL (0.2-1.0); Total Protein 6.1 g/dL (6.4-8.2)
[2022-07-18] MEDS ORDERED: ASPirin 81 mg TAB PO SCH (10:00)
[2022-07-18] MEDS ORDERED: FAMOTIDINE (10MG/ML) 2ML VL IV SCH (10:00)
[2022-07-18 11:15] VITALS: BP 126/77
[2022-07-18] MEDS ORDERED: cefTRIAXone 1GM/50ML D5W 50 ML IV SCH (22:00)
== END 2022-07-18 18:01 | disposition left against medical advice (07) | DRG 312 ==
LOC: EDBD 16:55 → ER 16:55 → EEVIPCON 16:55 → TELE 07-18 02:13
PROVIDERS: ADMIT Nurse Practitioner Family; ATTEND Nurse Practitioner Family
DX: R55 Syncope and collapse (principal); Z20.822 Contact with and (suspected) exposure to COVID-19; D72.829 Elevated white blood cell count, unspecified; R09.89 Other specified symptoms and signs involving the circulatory and respiratory systems; I51.7 Cardiomegaly; I50.9 Heart failure, unspecified; Z53.29 Procedure and treatment not carried out because of patient's decision for other reasons; Z93.3 Colostomy status; Z82.5 Family history of asthma and other chronic lower respiratory diseases; Z90.49 Acquired absence of other specified parts of digestive tract
CPT/HCPCS: 36415; 70450; 71045; 71260; 74177; 80053; 80307; 80320; 81001; 83880; 84484; 85025; 85379; 87426; 93970; 96365; 96375; G0378; J0696; J3490